=== PATIENT | male | born 1955 | race Hispanic/Latino ===

== ENCOUNTER → 2019-08-06 | Outpatient (CLI) | payer MEDICARE, OTHER ==
[2019-08-06 10:28] LABS: BASOPHILS % (AUTO) 0.8 % (0.0-5.0); EOSINOPHILS % (AUTO) 24.2 % (0.0-8.0); HEMATOCRIT 45.3 % (42-54); LYMPHOCYTES % (AUTO) 20.2 % (21.0-51.0); MEAN CORPUSCULAR HEMOGLOBIN 30.2 pg (27.0-33.0); MEAN CORPUSCULAR HGB CONC 33.8 g/dL (32.0-36.0); MEAN CORPUSCULAR VOLUME 89.5 fL (79-99); NEUTROPHILS % (AUTO) 44.7 % (40.0-77.0); PLATELET COUNT (AUTO) 176 K/uL (130-400); RED BLOOD CELL COUNT(AUTO) 5.06 MIL/uL (4.50-6.20); RED CELL DISTRIBUTION WIDTH 12.8 % (11.0-15.5); WHITE BLOOD COUNT (AUTO) 7.4 K/uL (4.8-10.8)
[2019-08-06 10:39] LABS: CREATININE 0.9 mg/dL (0.5-1.5)
== END | disposition home or self-care (01) ==
LOC: LAB 07-29 09:42
PROVIDERS: ATTEND Urology
DX: C67.2 Malignant neoplasm of lateral wall of bladder (principal); Z85.51 Personal history of malignant neoplasm of bladder
CPT/HCPCS: 36415; 80048; 85025

== ENCOUNTER → 2019-08-26 | Outpatient (CLI) | payer MEDICARE, OTHER ==
[~2019-08-26] MED LIST: IOHEXOL 350 MG/ML 100ML INFUS..BTL IV ONE
== END | disposition home or self-care (01) ==
LOC: RAH 08:39
PROVIDERS: ATTEND Urology
DX: C67.2 Malignant neoplasm of lateral wall of bladder (principal); Z85.51 Personal history of malignant neoplasm of bladder
CPT/HCPCS: 74178; Q9967